=== PATIENT | female | born 1955 | race Caucasian/White ===

== ENCOUNTER 2025-05-03 12:58 | Emergency (ER) | payer MEDICARE, BC ==
[~2025-05-03] VITALS: Ht 170.2 cm; Wt 112.6 kg
[~2025-05-03 12:58] MED LIST: AMITRIPTYLINE H50 MG PO; ARMOUR THYROID120 MG PO; AZULFIDINE500 MG PO; COZAAR50 MG PO; CYCLOBENZAPRINE10 MG PO; HYDROCHLOROTH12.5 M1 PO; KRILL OIL 1,001 EAC1 PO; KRILL OIL 3001 EACH PO; OMEGA 3 1,0001 EACH PO; SAVELLA50 MG PO; SYSTANE 0.3-0.415 ML OPTH; TRAMADOL HCL50 MG PO; VITAMIN D32000 UNI1 PO; VITAMIN E400 UNIT PO; XYZAL5 MG PO
[2025-05-03] MEDS ORDERED: EVOXAC30 MG PO (13:29)
[2025-05-03] MEDS ORDERED: LIPITOR20 MG PO (13:29)
[2025-05-03] MEDS ORDERED: LOSARTAN-HCTZ1 EAC1 PO (13:29)
[2025-05-03] MEDS ORDERED: SYNTHROID88 MCG PO (13:30)
[2025-05-03 13:56] VITALS: BP 115/71
== END 2025-05-03 13:56 | disposition home or self-care (01) ==
LOC: ED 12:58
DX: I10 Essential (primary) hypertension (principal); Z79.899 Other long term (current) drug therapy; Z88.1 Allergy status to other antibiotic agents; Z88.8 Allergy status to other drugs, medicaments and biological substances
CPT/HCPCS: 99283

== ENCOUNTER 2025-09-20 14:23 | Emergency (ER) | payer MEDICARE, BC ==
[~2025-09-20] VITALS: Ht 170.2 cm; Wt 110.5 kg
[~2025-09-20 14:23] MED LIST changes: +EVOXAC30 MG PO; +LIPITOR20 MG PO; +LOSARTAN-HCTZ1 EAC1 PO; +SYNTHROID88 MCG PO
--- OUTSIDE RECORDS SUMMARY | 2025-09-20 14:23 | XMS ---
PreManage Notification: MIQUEL ROMERO Security Planning Management It Specialist Events No recent Security Events currently on file CRITERIA MET - [facility] CARE PROVIDERS There are no care providers on record at this time. Zita has no Care Guidelines for this patient. Erick VISIT COUNT (12 MO.) 2 NIKUNJ Valentin TOTAL 2 NOTE: Visits indicate total known visits. ED/C VISIT TRACKING (12 MO.) 09/20/2025 14:23 NIKUNJ Darnell OR TYPE: Emergency COMPLAINT: - WEAKNESS 05/03/2025 12:59 NIKUNJ Darnell OR TYPE: Emergency COMPLAINT: - HIGH B/P DIAGNOSES: - Allergy status to other antibiotic agents - Allergy status to other drugs, medicaments and biological substances - Essential (primary) hypertension - Other termite control representative (current) drug therapy INPATIENT VISIT TRACKING (12 MO.) No inpatient visits to display in this time frame [email or web address]
[2025-09-20] MEDS ORDERED: CEVIMELINE HCL30 MG PO (14:27)
[2025-09-20] MEDS ORDERED: METOPROLOL SUC100 MG PO (14:41)
[2025-09-20 14:54] LABS: BASOPHILS 0.4 % (0.1-1.2); EOSINOPHILS 0.1 % (0.7-5.8); LYMPHOCYTES 14.6 % (19.3-51.7); MCH 29.6 PG (25.6-32.2); MCHC 33.7 g/dL (32.2-35.5); MCV 87.6 fL (79.4-94.8); MONOCYTES 7.4 % (4.7-12.5); NEUTROPHILS 77.1 % (34.0-71.1); RBC 5.58 M/uL (3.93-5.22)
[2025-09-20 15:10] LABS: ALT (SGPT) 31.0 U/L (14-59); AST (SGOT) 27.0 U/L (15-37); GLOMERULAR FILTRATION RATE,EST 52.0 mL/min (>60); PROTEIN, TOTAL 7.5 g/dL (6.4-8.2); UREA NITROGEN 23.0 mg/dL (7-18)
[2025-09-20] MEDS ORDERED: SODIUM CHLORIDE 0.9% 1,000 ML IV PRN ×2 (15:15)
[2025-09-20] MEDS ORDERED: POTASSIUM CHLORIDE 10 MEQ TABCR PO ONE (16:00)
[2025-09-20 16:29] LABS: BLOOD/HGB, URINE NEGATIVE (Negative); KETONE, URINE TRACE (Negative); LEUK ESTERASE, URINE NEGATIVE (negative); NITRITE, URINE NEGATIVE (negative)
[2025-09-20 16:32] LABS: BACTERIA, URINE NONE SEEN /hpf (negative); CASTS, URINE NONE SEEN \\lpf; CRYSTALS, URINE NONE SEEN (0-1+); EPITHELIAL CELLS, URINE SQUAMOUS 2+ /lpf (0-1+); REFLEX CULTURE, URINE No (No)
[2025-09-20] MEDS ORDERED: AMOXICILLIN/CLAVULANATE K 875 MG TAB PO ONE (17:15)
[2025-09-20] MEDS ORDERED: AMOX TR-K CLV1 EAC1 PO (17:58)
[2025-09-20] MEDS ORDERED: ONDANSETRON ODT4 MG PO (17:58)
[2025-09-20] MEDS ORDERED: AMOXICILLIN/CLAVULANATE K 875 MG HOME.PACK PO ONE (18:00)
[2025-09-20] MEDS ORDERED: ONDANSETRON 4 MG HOME.PACK SL ONE (18:00)
[2025-09-20 18:18] VITALS: BP 152/75
--- NOTE | 2025-09-22 18:22 | EKG ---
[facility] [address] [place] [address] Signed Normal sinus rhythm Left axis deviation Anterolateral infarct , age undetermined Abnormal ECG No previous ECGs available Confirmed by Chino Laguerre MD () on 09/22/2025 6:22:29 PM Electronically Signed By: CHINO LAGUERRE MD 09/22/251821 PATIENT NAME: MIQUEL ROMERO Electrocardiogram DATE OF : 55 PHYSICIAN: CHINO LAGUERRE MD REPORT #: [id number] REPORT IS CONFIDENTIAL AND NOT TO BE RELEASED WITHOUT AUTHORIZATION
== END 2025-09-20 18:18 | disposition home or self-care (01) ==
LOC: ED 14:23
PROVIDERS: Emergency Medicine
DX: K52.9 Noninfective gastroenteritis and colitis, unspecified (principal); Z79.899 Other long term (current) drug therapy; Z88.1 Allergy status to other antibiotic agents; Z88.8 Allergy status to other drugs, medicaments and biological substances
CPT/HCPCS: 36415; 71045; 74177; 80053; 81001; 83735; 85025; 93005; 93010; 96361; 96374; 99285-25; A9270; J2405; J7030; Q9967